=== PATIENT | female | born 1985 | race Hispanic/Latino ===

== ENCOUNTER 2017-12-21 15:18 | Emergency (ER) | payer MEDICARE ==
[~2017-12-21] VITALS: Ht 149.9 cm; Wt 72.6 kg
[2017-12-21 16:07] VITALS: BP 122/66
== END 2017-12-21 15:50 | disposition home or self-care (01) ==
LOC: FSED 15:18
DX: H92.02 Otalgia, left ear (principal); H60.12 Cellulitis of left external ear; F20.9 Schizophrenia, unspecified; Q99.9 Chromosomal abnormality, unspecified
CPT/HCPCS: 99282

== ENCOUNTER 2018-03-13 12:48 | Emergency (ER) | payer MEDICARE, OTHER ==
[~2018-03-13] VITALS: Ht 149.9 cm; Wt 74.8 kg
--- OUTSIDE RECORDS SUMMARY | 2018-03-13 12:51 | XMS REPORT | Clinical Summary ---
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 Last Filed Vital Signs Not on file Plan of Treatment Health Maintenance Due Date Last Done Comments INFLUENZA VACCINE 01/29/2018 Procedures Comments Procedure Name Priority Date/Time Associated Diagnosis POLYSOMNOGRAPHY REPORT - 04/14/2017 SCAN 1:40 PM BEHAVIORAL SCIENTIST POLYSOMNOGRAPHY REPORT - 04/05/2017 SCAN 11:22 AM BEHAVIORAL SCIENTIST after 03/12/2017 Results * POLYSOMNOGRAPHY REPORT - SCAN (04/14/2017 1:40 PM BEHAVIORAL SCIENTIST) Narrative Performed At * POLYSOMNOGRAPHY REPORT - SCAN (04/05/2017 11:22 AM BEHAVIORAL SCIENTIST) Narrative Performed At after 03/12/2017 Insurance Payer Benefit Subscriber ID Type Phone Address Plan / Group MEDICARE MEDICARE A xxxxxxxxxxx Medicare B MEDICAID MEDICAID xxxxxxxxx Medicaid OF [place]
--- NOTE | 2018-03-13 13:37 | Diagnostic Imaging Report ---
EXAMINATION: PA and lateral views of the chest. COMPARISON: None CLINICAL HISTORY: Cough, chest congestion DISCUSSION: Lines/tubes: None. Lungs: Mildly hypoinflated lungs. No consolidation or pulmonary edema. Pleura: There is no pleural effusion or pneumothorax. Heart and mediastinum: Mildly enlarged cardiac silhouette, which may be partly due to low lung volumes. Pulmonary vasculature is normal. Bones and soft tissues: No acute bony abnormalities. Mild rightward curvature of the lower thoracic spine, which may be positional. IMPRESSION: No acute cardiopulmonary abnormalities. Mildly enlarged cardiac silhouette, which may be partly due to low lung volumes. Signed by: Dr. Mayo King M.D. on 03/13/2018 1:34 PM
[2018-03-13 14:10] VITALS: BP 132/88
== END 2018-03-13 14:25 | disposition home or self-care (01) ==
LOC: FSED 12:48
DX: R05 Cough (principal); J20.9 Acute bronchitis, unspecified
CPT/HCPCS: 71046; 83518; 87400; 99283